=== PATIENT | female | born 1955 | race Caucasian/White ===

== ENCOUNTER → 2017-11-20 | Outpatient (CLI) | payer BC ==
[~2017-11-20] MED LIST: ALBU90OI6; ALBU90OI6 INH; ASCO500 PO; BUPR100 PO; BYVALSON 5 MG-1 EACH; CALCIUM/VITAMIN D; CHOL10002 PO; CITRACAL + D E1 EACH; Calcium + Vita1 EACH PO; DOCU100; DOCU100 PO; DOCUSATE SODIUM; ESTMEDA PO; Hair, Skin & N1 EACH PO; IBUP600 PO; IBUPROFEN200 MG; LANS15EC; LANS30EC PO; LOSARTAN-HCTZ1 EAC2 PO; METRIBP; METRIBP PO; MULTI VITAMIN1 EACH PO; Micro-K10 MEQ PO; NAPR220; NAPR500 PO; NEBI5 PO; OLME20-12.; OLME20-12. PO; OXYACE5T PO; PRIMPRO; Prempro 0.625-1 EACH; Prempro 0.625-1 EACH PO
[2017-11-22 14:09] LABS: HPV 16 Negative (Negative); HPV 18 Negative (Negative); HPV OTHER HR TYPES Negative (Negative)
== END | disposition home or self-care (01) ==
LOC: LAB 15:39 → LAB SHORT 15:39
PROVIDERS: Nurse Practitioner Women's Health
DX: Z12.4 Encounter for screening for malignant neoplasm of cervix (principal)
CPT/HCPCS: 87624; G0123

== ENCOUNTER → 2018-07-02 | Outpatient (CLI) | payer BC | END | disposition home or self-care (01) | LOC: PLD 07:43 → LAB SHORT 07:43 | DX: L82.1 Other seborrheic keratosis (principal) | CPT/HCPCS: 88305 ==

== ENCOUNTER → 2018-12-20 | Outpatient (CLI) | payer BC ==
[2018-12-21 15:07] LABS: HPV 16 Negative (Negative); HPV 18 Negative (Negative); HPV OTHER HR TYPES Negative (Negative)
== END | disposition home or self-care (01) ==
LOC: LAB SHORT 10:14 → LAB 10:14
PROVIDERS: Nurse Practitioner Women's Health
DX: Z12.4 Encounter for screening for malignant neoplasm of cervix (principal); Z91.89 Other specified personal risk factors, not elsewhere classified
CPT/HCPCS: 87624; G0123

== ENCOUNTER → 2020-10-19 | Outpatient (CLI) | payer BC | LOC: LAB 15:14 → LAB SHORT 15:14 | DX: D48.5 Neoplasm of uncertain behavior of skin (principal) | CPT/HCPCS: 88305 ==

== ENCOUNTER 2021-06-10 08:34 | Day surgery (SDC) | payer BC ==
[2021-06-09 08:30] LABS: BASOPHILS ABSOLUTE AUTO 0.05 K/mm3 (0.00-0.23); BASOPHILS PERCENT AUTO 1 % (0-2); EOSINOPHILS ABSOLUTE AUTO 0.27 K/mm3 (0.00-0.68); EOSINOPHILS PERCENT AUTO 5 % (0-6); Hematocrit 43.9 % (33.0-51.0); Hemoglobin 14.8 g/dL (11.5-16.0); IMMATURE GRAN ABSOLUTE AUTO 0.03 K/mm3 (0.00-0.10); IMMATURE GRAN PERCENT AUTO 1 % (0-1); LYMPHOCYTES ABSOLUTE AUTO 1.55 K/mm3 (0.84-5.20); LYMPHOCYTES PERCENT AUTO 28 % (21-46); MONOCYTES ABSOLUTE AUTO 0.48 K/mm3 (0.16-1.47); MONOCYTES PERCENT AUTO 9 % (4-13); Mean Corpuscular HGB 29.3 pg (26.0-34.0); Mean Corpuscular HGB Conc 33.7 g/dL (31.5-36.5); Mean Corpuscular Volume 87 fL (80-100); Mean Platelet Volume 10.7 fL (9.1-12.4); NEUTROPHILS ABSOLUTE AUTO 3.09 K/mm3 (1.96-9.15); NEUTROPHILS PERCENT AUTO 57 % (41-73); Platelet Count 268 K/mm3 (150-400); RDW Coefficient Variation 13.1 % (11.7-14.2); RDW Standard Deviation 41.2 fL (35.1-46.3); Red Blood Cell Count 5.05 M/mm3 (3.80-5.20); White Blood Cell Count 5.47 K/mm3 (4.00-11.30)
[2021-06-09 08:57] LABS: Bun/Creatinine Ratio 15.7 (12.0-20.0); Calcium, Blood 9.1 mg/dL (8.5-10.1); Creatinine, Blood 1.08 mg/dL (0.40-1.00); Potassium, Blood 3.7 mmol/L (3.5-5.5)
[~2021-06-10] VITALS: Ht 165.1 cm; Wt 86.7 kg
[~2021-06-10 08:34] MED LIST changes: +AMLO5 PO; +Acerola C500 MG PO; +Aspirin325 MG PO; +BACL10 PO; +BUPR150ER PO; +Calcium Acetat667 MG PO; +DOC250 PO; +IBUP800 PO; +LEVOTHYROXINE13 MCG PO; +MULVITA PO; +NEBI10 PO; +POTA10T PO; +PROG100 PO; +Percocet 5-3251 EACH PO; +Prevacid15 M2 PO; +TYLENOL PM ES PO; +VIVELLE-DOT TOP; +Zofran4 MG PO
--- NOTE | 2021-06-10 09:23 | NUR ---
PT AMBULATES TO [facility] c STEADY GAIT. Patient confirms NPO status and agrees with scheduled surgery. History, Chart, Medications and Allergies reviewed before start of procedure. Lungs clear T/O to Auscultation. Surgical site prepped with 2% Chlorhexidine cloth wipe. +VOID. GLASSES IN BELONGINGS BAG.
--- NOTE | 2021-06-10 12:50 | NUR ---
PT ARRIVED TO THE ROOM AT APPROXIMATELY 1245. PT IS ALERT AND ORIENTED. SHE REPORTS ABD PAIN. VSS. WILL CONTINUE TO MONITOR.
[2021-06-10] MEDS ORDERED: Acetaminophen325 M1 (15:27)
--- NOTE | 2021-06-10 17:29 | NUR ---
DISCHARGE SUMMARY POD0 TOTAL ROBOTIC LAP HYSTER, A/O X4, VSS, TOLERATING PO, AMBULATING INDEPENDENTLY, PAIN WELL MANAGED, VOIDING WELL. DISCUSSED DISCHARGE INFORMATION WITH THE PATIENT WHO HAD NO QUESTIONS, CONFIRMED FOLLOW UP APPOINTMENT AND MEDICATIONS AND HOME PRECAUTIONS. PT REPORTED HAVING NO QUESTIONS AT THE TIME. CONTACT INFORMATION GIVEN SHOULD QUESTIONS ARISE AFTER DISCHARGE, IV ACCESS DEVICE REMOVED AND NO OTHER IN PLACE, PT ESCORTED OUT VIA WC.
== END 2021-06-10 15:58 | disposition home or self-care (01) ==
LOC: ORSCMMR 08:34 → ORD 10:15 → ORSCMMR 10:15 → SURS 12:45 → ORSCMMR 15:58
PROVIDERS: Obstetrics & Gynecology
PROC: 0UT94ZZ Resection of Uterus, Percutaneous Endoscopic Approach (ICD-10-PCS; principal; 2021-06-10 10:15)
DX: D25.0 Submucous leiomyoma of uterus (principal); N95.0 Postmenopausal bleeding; I10 Essential (primary) hypertension; E03.9 Hypothyroidism, unspecified; Z88.5 Allergy status to narcotic agent
CPT/HCPCS: 36415; 80048; 84702; 85025; 86850; 86900; 86901; A9270; J0690; J1100; J1170; J2250; J2370; J2405; J2550; J2704; J3010; J7120

== ENCOUNTER → 2021-12-02 | Outpatient (CLI) | payer BC ==
[~2021-12-02] MED LIST changes: +Acetaminophen325 M1
== END | disposition home or self-care (01) ==
LOC: PLD 11:31 → LAB SHORT 11:31
DX: L81.4 Other melanin hyperpigmentation (principal)
CPT/HCPCS: 88305

== ENCOUNTER 2022-04-08 13:00 | Day surgery (SDC) | payer MEDICARE, OTHER ==
[~2022-04-08] VITALS: Ht 162.6 cm; Wt 85.2 kg
== END 2022-04-08 14:48 | disposition home or self-care (01) ==
LOC: ORSCSDS 13:00
PROVIDERS: Internal Medicine Gastroenterology
PROC: 0DBK8ZX Excision of Ascending Colon, Via Natural or Artificial Opening Endoscopic, Diagnostic (ICD-10-PCS; principal; 2022-04-08 14:00)
DX: Z12.11 Encounter for screening for malignant neoplasm of colon (principal); Z86.010 Personal history of colon polyps; D12.2 Benign neoplasm of ascending colon; K57.30 Diverticulosis of large intestine without perforation or abscess without bleeding; I10 Essential (primary) hypertension; E03.9 Hypothyroidism, unspecified; I12.9 Hypertensive chronic kidney disease with stage 1 through stage 4 chronic kidney disease, or unspecified chronic kidney disease; N18.30 Chronic kidney disease, stage 3 unspecified; Z79.899 Other long term (current) drug therapy
CPT/HCPCS: 88305; J2704; J7120

== ENCOUNTER → 2024-08-05 | Outpatient (CLI) | payer MEDICARE, OTHER | END | disposition home or self-care (01) | LOC: LAB 13:43 → LAB SHORT 13:43 | DX: N39.0 Urinary tract infection, site not specified (principal); R31.9 Hematuria, unspecified | CPT/HCPCS: 87086 ==